=== PATIENT | male | born 1955 | race Caucasian/White ===

== ENCOUNTER 2022-01-01 17:44 | Emergency (ER) | payer MEDICARE, SELFPAY ==
[2022-01-01] VITALS (7 sets, daily range): BP systolic 139–157; BP diastolic 82–106; PULSE 70–81; RESP 15–18; TEMP 36.4; O2SAT 95–100; BMI 39.9
--- NOTE | 2022-01-01 17:44 | ECG_ITS ---
APPROVED REPORT Exam: Resting ECG HR:75 bpm ECG Measurements Heart Rate 75 AXES MD 285 P -24 QRSd 150 QRS 138 QT 426 T -9 QTc 455 Conclusion ELECTRONIC ATRIAL PACEMAKER RIGHT AXIS DEVIATION [QRS AXIS > 100] RIGHT BUNDLE BRANCH BLOCK [120+ ms QRS DURATION, UPRIGHT V1, 40+ ms S IN I/aVL/V4/V5/V6] ABNORMAL ECG UNCONFIRMED REPORT Electronically signed by : Chuck Caldwell MD 01/02/2022 13:49:32
--- NOTE | 2022-01-01 18:25 | HMH.EDSOB ---
Discharge Plan Disposition Patient Disposition: Still a Patient Clinical Impressions Clinical Impression: Congestive heart failure Discharge ED Provider: Tye Rodriguez Resp/SOB HPI General Chief Complaint: Shortness of Breath/Dyspnea Stated Complaint: CHEST PAIN Time Seen by Provider: 01/01/22 18:00 Description of Symptoms (Recalled from ER Triage Doc. by RN): 77-year-old male with history of hypertension, heart failure, COPD presents with difficulty breathing. He says that he has had progressive worsening of difficulty breathing worse with lying down flat. He does have mild swelling. No fever chills or cough worsening. He has mild chest pain however he says it is stable from prior. He has history of CABG as well. Chest pain is nonexertional and no diaphoresis or vomiting associated with it. Related Data Allergies Allergy/AdvReac Type Severity Reaction Status Date / Time No Known Allergies Allergy Verified 01/01/22 18:47 [facility] Medical History (Updated 01/01/22 @ 19:40 by Tye Rodriguez MD) Diabetes Surgical History (Updated 01/01/22 @ 19:40 by Linda Keller RN) History of heart artery stent Hx of CABG Social History Smoking Status: Never smoker alcohol intake: never current occupational status: unemployed Travel in the last 8 weeks: Inside the [place] ROS Obtained: Yes All systems reviewed & no additional complaints except as documented Physical Exam General General appearance: alert and in no apparent distress Eye Eye exam: Present PERRL and EOMI ENT ENT exam: Present normal exam and normal oropharynx Neck Neck exam: Present normal inspection Chest Chest inspection: Present symmetric chest wall rise Respiratory Respiratory exam: Present normal lung sounds bilaterally and respiratory distress (Mild tachypnea); Absent wheezes Cardiovascular Cardiovascular exam: Present regular rate, normal rhythm and other (Mild edema 1+) Abdominal Exam Abdominal exam: Present soft; Absent distention, tenderness, guarding, rebound, Escobar's sign or tenderness at McBurney's Point Rectal Exam Rectal exam: Present deferred Back Exam Back exam: Present normal inspection Neurological Exam Neurological exam: Present alert and oriented X3 Psychiatric Psychiatric exam: Present normal affect and normal mood Skin Skin exam: Present warm, dry and intact Lymphatic Lymphatic Findings: no adenopathy Medical Decision Making Medical Records Medical records reviewed: Yes I reviewed the patient's medical records. North Inquiry Pt receiving controlled substance: No North was queried for this patient: No Vital Signs: 01/01/22 17:56 01/01/22 19:00 01/01/22 19:30 Temperature 97.6 F Temperature Source Oral Pulse Rate 70 76 Pulse Rate [Apical] 74 Respiratory Rate 18 Blood Pressure 139/94 H 141/93 H Blood Pressure [Right Arm] 144/106 H Blood Pressure Mean [Right Arm] 118 Blood Pressure Source [Right Arm] Automatic Cuff Blood Pressure Position [Right Arm] Sitting 02 Sat by Pulse Oximetry 96 95 100 Oxygen Delivery Method Room Air Room Air Room Air 01/01/22 20:00 Temperature Temperature Source Pulse Rate 75 Pulse Rate [Apical] Respiratory Rate Blood Pressure 147/89 H Blood Pressure [Right Arm] Blood Pressure Mean [Right Arm] Blood Pressure Source [Right Arm] Blood Pressure Position [Right Arm] 02 Sat by Pulse Oximetry 95 Oxygen Delivery Method Room Air Lab Data Lab Results 01/01/22 17:55: WBC 8.6, RBC 4.25 L, Hgb 12.5 L, Hct 40.5 L, MCV 95.2 H, MCH 29.4, MCHC 30.9 L, RDW 15.9, Plt Count 282, MPV 8.9, Neut % (Auto) 69.7, Lymph % (Auto) 18.0, Bulloch % (Auto) 8.1, Eos % (Auto) 2.9, Baso % (Auto) 1.4, Neut # (Auto) 6.0, Lymph # (Auto) 1.6, Bulloch # (Auto) 0.7, Eos # (Auto) 0.3, Baso # (Auto) 0.1 01/01/22 17:55: D-Dimer 1.13 H 01/01/22 17:55: Sodium 143, Potassium 4.4, Chloride 98, Carbon Dioxide 29, Anion Gap 20.4 H, BUN 26 H, Creatinine 1.60 H, Estimated GFR 4
[2022-01-01 18:28] LABS: Alanine Aminotransferase 16 U/L (12-78); Albumin Level 4.6 g/dl (3.5-5.0); Albumin/Globulin Ratio 1.3 (1.1-1.8); Alkaline Phosphatase 104 U/L (38-126); Anion Gap 20.4 mEq/L (5-15); Aspartate Amino Transferase 32 U/L (17-59); Bilirubin,Total 1.1 mg/dl (0.2-1.3); Blood Urea Nitrogen 26 mg/dl (9-20); Calcium 9.4 mg/dl (8.4-10.2); Carbon Dioxide 29 mmol/L (22.0-30.0); Chloride 98 mmol/L (98-107); Estimated Glomerular Filt Rate 42 ml/min (>60); GFR (African American) 51 ML/MIN (>60); Globulin 3.5 g/dL (1.3-3.2); Glucose 98 mg/dl (74-100); Potassium 4.4 mmoL/L (3.5-5.1); Sodium 143 mmol/L (136-145); Total Protein,Serum 8.1 g/dl (6.3-8.2)
[2022-01-01 18:34] LABS: D-Dimer 1.13 ug/mL (0.0-0.5)
--- NOTE | 2022-01-01 18:42 | PC.NURSE ---
RESP CALLED FOR DUO NEB
[2022-01-01 18:44] LABS: NT Pro Brain Natriuretic Pep. 7960 pg/mL (0-125); Troponin I < 0.01 ng/ml (0.00-0.034)
--- NOTE | 2022-01-01 18:44 | CT_ITS ---
PROCEDURE INFORMATION: Exam: CTA Chest With Contrast Exam date and time: 01/01/2022 7:07 PM Age: 66 years old Clinical indication: Shortness of breath; Prior surgery; Surgery date: 6+ months; Surgery type: Open heart, multiple cardiac stents, pacemaker. Patient HX: Elevated d-dimer. ; Additional info: Pte TECHNIQUE: Imaging protocol: Computed tomographic angiography of the chest with contrast. 3D rendering (Not supervised by radiologist): MIP and/or 3D reconstructed images were created by the technologist. Radiation optimization: All CT scans at this facility use at least one of these dose optimization techniques: automated exposure control; mA and/or kV adjustment per patient size (includes targeted exams where dose is matched to clinical indication); or iterative reconstruction. Contrast material: ISOVUE 370; Contrast volume: 70 ml; Contrast route: INTRAVENOUS (IV); COMPARISON: CR XR CHEST PORTABLE 01/01/2022 6:55 PM FINDINGS: Tubes, catheters and devices: Pacemaker leads are in the expected location. Pulmonary arteries: No pulmonary emboli. Aorta: The aorta demonstrates moderate atherosclerotic disease. Lungs: Mosaic attenuation of the lungs suggests small airway disease, such as asthma or bronchiolitis. Azygos fissure. Pleural spaces: Small left pleural effusion. Heart: Coronary artery calcifications. Cardiomegaly. Mitral and aortic valve calcifications. Reflux of contrast into the hepatic veins suggests right heart dysfunction. Lymph nodes: Unremarkable. No enlarged lymph nodes. Gallbladder and bile ducts: Gallbladder is absent. Pancreas: Ctrs-fu-[id number] pancreatic atrophy. Spleen: Mild splenomegaly. Stomach and bowel: Dilated segments of small bowel in the upper abdomen may represent mild ileus or partial small bowel obstruction. Gastric band is in the expected location. Bones/joints: Status post median sternotomy and coronary artery bypass. Soft tissues: Mild bilateral gynecomastia with mild asymmetry. The right is slightly more pronounced than the left. Other findings: Stigmata of old granulomatous disease. IMPRESSION: 1. No pulmonary emboli. 2. Small left pleural effusion. 3. Mosaic attenuation of the lungs suggests small airway disease, such as asthma or bronchiolitis. 4. Dilated segments of small bowel in the upper abdomen may represent mild ileus or partial small bowel obstruction.
--- NOTE | 2022-01-01 18:45 | XR_ITS ---
PROCEDURE INFORMATION: Exam: XR Chest Exam date and time: 01/01/2022 6:55 PM Age: 66 years old Clinical indication: Prior surgery; Surgery date: 6+ months; Surgery type: Open heart, multiple cardiac stents, pacemaker all done in other states. Patient HX: Elevated d-dimer, shortness of breath. Cta chest done at this time. ; Additional info: SOA TECHNIQUE: Imaging protocol: Radiologic exam of the chest. Views: 1 view. COMPARISON: No relevant prior studies available. FINDINGS: Tubes, catheters and devices: ICD pacemaker leads project in the expected location. Lungs: Azygos fissure. Pleural spaces: Unremarkable. No pleural effusion. No pneumothorax. Heart/Mediastinum: Cardiomegaly. Vasculature: Status post median sternotomy and coronary artery bypass. Bones/joints: See Vasculature finding. IMPRESSION: No acute findings.
[2022-01-01 18:47] LABS: Basophils # 0.1 K/mm3 (0-0.2); Basophils % 1.4 % (0.1-2.0); Eosinophils # 0.3 K/mm3 (0.0-0.4); Eosinophils % 2.9 % (0.1-12.0); Hematocrit 40.5 % (42.0-52.0); Hemoglobin 12.5 g/dL (14.1-18.0); Lymphocytes # 1.6 K/mm3 (0.7-4.5); Mean Corpuscular HGB Conc 30.9 g/dL (31.8-35.4); Mean Corpuscular Hemoglobin 29.4 pg (27.0-31.2); Mean Corpuscular Volume 95.2 fl (80-94); Mean Platelet Volume 8.9 fl (7.4-10.4); Monocytes # 0.7 K/mm3 (0.1-1.0); Monocytes % 8.1 % (1.7-9.3); Neutrophils % 69.7 % (37.0-80.0); Platelet Count 282 K/mm3 (142-424); Red Blood Count 4.25 M/mm3 (4.60-6.20); Red Cell Distribution Width 15.9 % (11.5-17.5); White Blood Count 8.6 K/mm3 (4.8-10.8)
--- NOTE | 2022-01-01 18:48 | PC.NURSE ---
notified RT of VBG order
[2022-01-01 19:07] LABS: VBG Base Excess -3.1 mmol/L (-2.4-2.3); VBG HCO3 23.6 mmol/L (23-30); VBG Oxygen Saturation 64.4 % (50-70); VBG PCO2 51.4 mmol/L (35-51); VBG PH 7.28 mmol/L (7.31-7.41); VBG PO2 39.2 mmol/L (28-40); VBG Total CO2 25.2 mmol/L (23-27)
--- NOTE | 2022-01-01 19:11 | PC.NURSE ---
pt in CT
--- NOTE | 2022-01-01 19:30 | PC.NURSE ---
Addendum entered by Linda Keller RN 01/01/22 19:40: notified staff at report that pt states has been out of entresto and atorvastatin x4 days Original Note: shift change report given to jamesrn
--- NOTE | 2022-01-01 20:00 | CT_ITS ---
PROCEDURE INFORMATION: Exam: CT Abdomen And Pelvis Without Contrast Exam date and time: 01/01/2022 8:19 PM Age: 66 years old Clinical indication: Other: Dilated bowel loops; Additional info: Dilated bowel loops, possible sbo TECHNIQUE: Imaging protocol: Computed tomography of the abdomen and pelvis without contrast. Radiation optimization: All CT scans at this facility use at least one of these dose optimization techniques: automated exposure control; mA and/or kV adjustment per patient size (includes targeted exams where dose is matched to clinical indication); or iterative reconstruction. COMPARISON: CT ANGIO CHEST PE PROTOCOL 01/01/2022 7:07 PM FINDINGS: Liver: Normal. No mass. Gallbladder and bile ducts: Gallbladder is absent. Pancreas: Moderate to advanced pancreatic atrophy. Spleen: Normal. No splenomegaly. Adrenal glands: Mild nonspecific left adrenal thickening. Kidneys and ureters: Low attenuation renal lesions measuring up to 2.6 cm in diameter are incompletely characterized, but are likely cysts. No followup imaging is warranted. Stomach and bowel: Dilated and gas-filled segments of small bowel without a transition point. Gastric band is in the expected location. Appendix: No evidence of appendicitis. Intraperitoneal space: Small amount of ascites without a clear source. Vasculature: Unremarkable. No abdominal aortic aneurysm. Lymph nodes: Unremarkable. No enlarged lymph nodes. Urinary bladder: Unremarkable as visualized. Reproductive: Unremarkable as visualized. Bones/joints: Unremarkable. No acute fracture. Soft tissues: Anterior abdominal wall hernias without incarceration. Mild anasarca. Tiny fat containing umbilical hernia. Other findings: Please see separate report for CT chest. Stigmata of old granulomatous disease. IMPRESSION: Dilated and gas-filled segments of small bowel without a transition point. This is most likely ileus, less likely partial small bowel obstruction. COMMENTS: Consistent with the [employer]'s Incidental Findings Committee white paper (J Am Kaylee Radiol 2018): Any incidental renal lesion less than 1 cm or classified as too small to characterize, or any incidental cystic renal lesion characterized as simple-appearing, is likely benign. No follow-up imaging is recommended for these lesions per consensus recommendations based on imaging criteria.
--- NOTE | 2022-01-01 21:07 | PC.NURSE ---
Pt up to bathroom and back to bed with minimal assistance. No other needs at this time.
--- NOTE | 2022-01-01 21:22 | PC.NURSE ---
TROPONIN LEVEL DRAWN. PT UPDATED WITH EXPECTED WAIT TIMES. NO COMPLAINTS VOICED.
[2022-01-01 21:57] LABS: Troponin I < 0.01 ng/ml (0.00-0.034)
== END 2022-01-01 22:16 | disposition home or self-care (01) ==
PROVIDERS: Emergency Provider Emergency Medicine; PCP Family Medicine
DX: I11.0 Hypertensive heart disease with heart failure (principal); I50.9 Heart failure, unspecified
CPT/HCPCS: 71045; 71275; 74176; 80053; 82803; 83880; 84484; 85025; 85378; 93005; 96374; 96375; 99284; Q9967